=== PATIENT | female | born 1990 | race Caucasian/White ===

== ENCOUNTER 2022-03-19 14:20 | Day surgery (SDC) | payer OTHER ==
[2022-03-19 15:06] VITALS: BMI 31.1
[2022-03-19] MEDS ORDERED: hydrALAZINE 20 MG/ML VIAL SLOW IVP PRN (15:06)
[2022-03-19 16:52] LABS: Creatinine, Urine Less than 20.00 mg/dL (47-110); Protein, Urine Random Quant Less than 10 mg/dL (1-14)
[2022-03-19 16:59] LABS: #Eosinphils 0.1 10x3/uL (0.0-0.5); #Monocytes 0.5 10x3/uL (0.0-1.1); #Neutrophils 7.7 10x3/uL (1.5-8.4); %Basophils 0.2 % (0.0-2.0); %Eosinophils 0.7 % (0.0-6.0); %Lymphocytes 18.5 % (18.0-47.0); %Monocytes 4.8 % (0.0-10.0); %Neutrophils 75.4 % (40.0-75.0); Hemoglobin 12.7 g/dL (12.0-15.5); Mean Corpuscular HGB CONC 35.4 g/dL (32.0-36.0); Mean Corpuscular Hemoglobin 34.3 pg (27.0-33.0); Mean Platelet Volume 10.4 fl (7.4-10.4); Platelet Count 212 10x3/uL (150-450); RBC Distribution Width 12.3 % (11.5-14.5); White Blood Cell (WBC) Count 10.3 10x3/uL (3.5-10.5)
[2022-03-19 17:14] LABS: ALT (SGPT) 15 U/L (8-55); AST (SGOT) 14 U/L (5-34); Albumin 3.7 g/dL (3.5-5.0); Alkaline Phosphatase 207 U/L (40-110); Anion Gap 13 mmol/L (10-20); BUN (Urea Nitrogen) 7 mg/dL (7.0-18.7); Bilirubin, Total 0.5 mg/dL (0.2-1.2); Calc. Creatinine Clearance 196 mL/min (70-130); Calcium 9.3 mg/dL (7.8-10.44); Carbon Dioxide 21 mmol/L (22-29); Chloride 105 mmol/L (98-107); Estimated GFR 123; Globulin 2.8 g/dL (2.4-3.5); Glucose 97 mg/dL (70-105); Potassium 3.8 mmol/L (3.5-5.1); Protein, Total 6.5 g/dL (6.0-8.3); Sodium 135 mmol/L (136-145)
== END 2022-03-19 17:44 | disposition home health service (06) ==
LOC: CSHLD/OP 14:20
PROVIDERS: ATTEND Advanced Practice Midwife
DX: O99.891 Other specified diseases and conditions complicating pregnancy (principal); R51.9 Headache, unspecified; Z3A.41 41 weeks gestation of pregnancy
CPT/HCPCS: 80053; 82570; 84156; 85025; 99283

== ENCOUNTER 2022-03-24 05:30 | Inpatient (IN) | payer OTHER ==
[2022-03-24] MEDS ORDERED: HYDROcodone/Acetaminophen 5/325 mg Tablet PO PRN ×2 (05:36)
[2022-03-24] MEDS ORDERED: Methylergonovine 0.2 MG/ML VIAL IM PRN (05:36)
[2022-03-24] MEDS ORDERED: Lidocaine 1% (PF) 30 ML VIAL SC PRN (05:36)
[2022-03-24] MEDS ORDERED: Ibuprofen 800 MG TAB PO PRN (05:36)
[2022-03-24] MEDS ORDERED: Ondansetron PF 4 MG/2 ML Vial IVP PRN (05:36)
[2022-03-24] MEDS ORDERED: hydrALAZINE 20 MG/ML VIAL SLOW IVP PRN (05:36)
[2022-03-24] MEDS ORDERED: Misoprostol 200 MCG TAB PR PRN (05:36)
[2022-03-24] MEDS ORDERED: Butorphanol Tartrate 1 MG/ML VIAL SLOW IVP PRN (05:36)
[2022-03-24] MEDS ORDERED: Promethazine HCl 25 MG/ML VIAL IM PRN (05:36)
[2022-03-24] MEDS ORDERED: Misoprostol 100 MCG TAB VAG SCH (05:45)
[2022-03-24] MEDS ORDERED: NS w/ Oxytocin 30 units 500 ML IV SCH ×2 (05:45)
[2022-03-24 06:16] VITALS: BMI 31.1
[2022-03-24] MEDS ORDERED: Bupivacaine PF 0.5% 30 ML VIAL ONE (08:00)
[2022-03-24 08:20] LABS: Hemoglobin 12.4 g/dL (12.0-15.5); Mean Corpuscular HGB CONC 36.9 g/dL (32.0-36.0); Mean Corpuscular Hemoglobin 35.2 pg (27.0-33.0); Mean Corpuscular Volume 95.5 fl (81.6-98.3); Mean Platelet Volume 10.6 fl (7.4-10.4); Platelet Count 197 10x3/uL (150-450); RBC Distribution Width 12.3 % (11.5-14.5); Red Blood Cell (RBC) Count 3.52 10x6/uL (3.90-5.03); White Blood Cell (WBC) Count 8.3 10x3/uL (3.5-10.5)
[2022-03-24] MEDS ORDERED: Terbutaline Sulfate 1 MG/ML VIAL ONE (08:20)
[2022-03-24 08:47] LABS: HBSAg Index 0.13 S/CO (0-0.99); Hep B Surf Ag Non-Reactive S/CO (NonReactive)
[2022-03-24 08:49] LABS: Syphilis Antibody Nonreactive (Nonreactive); Syphilis Antibody Index 0.05 S/CO (<1.00 Non-Reactive)
[2022-03-24 21:17] LABS: SARS-CoV-2 NAA Rapid Test Not Detected (NotDetected)
[2022-03-24] MEDS ORDERED: Fentanyl 2 mcg/Bup 0.1% Cadd 100 ML ONE (22:22)
[2022-03-25] MEDS ORDERED: Benzocaine-Menthol 82.5 ML CAN TOP PRN (04:33)
[2022-03-25] MEDS ORDERED: HYDROcodone/Acetaminophen 5/325 mg Tablet PO PRN ×2 (04:33)
[2022-03-25] MEDS ORDERED: hydrALAZINE 20 MG/ML VIAL SLOW IVP PRN (04:33)
[2022-03-25] MEDS ORDERED: Lanolin Ointment 7 GM TUBE TOP PRN (04:33)
[2022-03-25] MEDS ORDERED: Milk Of Magnesia 30 ML UDCUP PO PRN (04:33)
[2022-03-25] MEDS ORDERED: Misoprostol 200 MCG TAB VAG PRN (04:33)
[2022-03-25] MEDS ORDERED: Bisacodyl 10 MG SUPP PR PRN (04:33)
[2022-03-25] MEDS ORDERED: Boostrix 0.5 ML (Tdap) VIAL (>/=7 yrs of age) IM ONE (04:33)
[2022-03-25] MEDS ORDERED: NS w/ Oxytocin 30 units 500 ML IV SCH (05:00)
[2022-03-25] MEDS: Ibuprofen 800 MG TAB PO SCH ×3 (05:37→21:54)
[2022-03-25] MEDS: Docusate 100 MG CAP PO SCH ×2 (08:35→21:54)
[2022-03-25] MEDS: Ferrous Sulfate 325 MG TAB PO SCH ×3 (08:35→17:55)
[2022-03-25] MEDS: Prenatal Vitamin 1 TAB PO SCH (08:35)
[2022-03-26] MEDS: Ibuprofen 800 MG TAB PO SCH ×3 (05:57→09:25)
[2022-03-26] MEDS: Docusate 100 MG CAP PO SCH (09:24)
[2022-03-26] MEDS: Prenatal Vitamin 1 TAB PO SCH (09:25)
[2022-03-26 10:30] VITALS: BP 113/76; TEMP 98.5
[2022-03-26] MEDS: Ferrous Sulfate 325 MG TAB PO SCH (11:27)
== END 2022-03-26 11:55 | disposition home or self-care (01) | DRG 807 ==
LOC: CSHLD 05:32 → CSHPP 03-25 09:55
PROVIDERS: ADMIT Obstetrics & Gynecology; ATTEND Advanced Practice Midwife
PROC: 10E0XZZ Delivery of Products of Conception, External Approach (ICD-10-PCS; principal; 2022-03-24)
PROC: 0HQ9XZZ Repair Perineum Skin, External Approach (ICD-10-PCS; 2022-03-24)
PROC: 3E0334Z Introduction of Serum, Toxoid and Vaccine into Peripheral Vein, Percutaneous Approach (ICD-10-PCS; 2022-03-24)
PROC: 10907ZC Drainage of Amniotic Fluid, Therapeutic from Products of Conception, Via Natural or Artificial Opening (ICD-10-PCS; 2022-03-24)
DX: O48.0 Post-term pregnancy (principal); Z37.0 Single live birth; Z3A.41 41 weeks gestation of pregnancy; Z20.822 Contact with and (suspected) exposure to COVID-19; O69.1XX0 Labor and delivery complicated by cord around neck, with compression, not applicable or unspecified; O70.0 First degree perineal laceration during delivery; Z79.899 Other long term (current) drug therapy; O26.893 Other specified pregnancy related conditions, third trimester; Z67.41 Type O blood, Rh negative
CPT/HCPCS: 36415; 51702; 85027; 85461; 86780; 86850; 86900; 86901; 87340; 90384; 96372; J2590; S0020; U0002

== ENCOUNTER 2024-10-11 16:39 | Emergency (ER) | payer BC, OTHER | END 2024-10-11 19:20 | disposition home or self-care (01) | LOC: CSHERS 16:39 | DX: O03.9 Complete or unspecified spontaneous abortion without complication (principal); Z3A.01 Less than 8 weeks gestation of pregnancy | CPT/HCPCS: 76856; 84702; 93976; 99284 ==